=== PATIENT | female | born 1995 | race African-American/Black ===

== ENCOUNTER 2022-12-26 08:05 | Emergency (ER) | payer BC, SELFPAY ==
[2022-12-26 08:18] VITALS: BP 137/86; PULSE 115; RESP 20; TEMP 36.5; O2SAT 99
--- NOTE | 2022-12-26 08:30 | ED.ABDPAIN ---
HPI - Abdominal Pain General Chief Complaint: Abdominal Pain Stated Complaint: pain in lower right abdo History of Present Illness HPI narrative: Patient presents with right lower quadrant pain for the last 3 days. Patient states the pain is worse when she lays flat are moves and reports decreased appetite. Related Data Home Medications Medication Instructions Recorded Confirmed No Home Medications 12/26/22 12/26/22 Allergies Allergy/AdvReac Type Severity Reaction Status Date / Time No Known Allergies Allergy Verified 12/26/22 08:21 Review of Systems Review of Systems: CONSTITUTIONAL: Denies fever, chills, or sweats. EYES: Denies visual changes, redness, or discharge. ENT: Denies rhinorrhea, congestion, sore throat, or otalgia. CARDIOVASCULAR: Denies chest pain, palpitations, or edema. RESPIRATORY: Denies cough or dyspnea. GASTROINTESTINAL: Denies abdominal pain, nausea, vomiting, or diarrhea. GENITOURINARY: Denies dysuria or hematuria. SKIN: Denies rash or itching. MUSCULOSKELETAL: Denies back pain, joint pain, or myalgia. NEUROLOGIC: Denies headache, numbness, or weakness. PSYCHIATRIC: Denies anxiety or depression. PMFSH Comments At time of signature, agree with nursing past medical, surgical, social and family history. There is no relevant family history pertinent to the presenting complaint Exam Narrative: GENERAL: Well-appearing, well-nourished, and in no acute distress. HEAD: Normocephalic, atraumatic. EYES: PERRLA and EOMI. ENT: Nares clear, no rhinorrhea or epistaxis. Mucous membranes moist. NECK: Supple. CHEST: Clear to auscultation. No respiratory distress. HEART: Regular rate and rhythm. No murmur heard. Normal peripheral pulses. ABDOMEN: Soft, nondistended, normal active bowel sounds. Right lower quadrant pain, no guarding no rebound tenderness EXTREMITIES: Normal range of motion. No edema. SKIN: Warm, dry, no rash. NEURO: No focal deficits. Alert and oriented x3. Alejandra Coma Scale Eye Opening: Spontaneous 4 Alejandra Coma Scale Motor: Obeys Commands 6 Alejandra Coma Scale Verbal: Oriented 5 [place] Coma Scale Total 15 Course Course Level of Care: Express Care Visit Transfer Transfered to: [place] Transportation: Other (private vehicle) Transfer rationale: higher level of care Accepting physician: dr tilley Transfer comments: patient to go straight to [facility] room do not ear or drink Enroute MDM - Abdominal Pain Lab Data Labs: Urine Glucose Negative Reference Range: Negative Urine Bilirubin Negative Reference Range: Negative Urine Ketone Negative Reference Range: Negative Urine Specific [place] 1.005 Reference Range:1.001-1.035 Urine Blood Trace Reference Range: Negative * * Urine pH 5.5 Reference Range: 5.0-9.0 Urine Protein Negative Reference Range: Negative Urine Urobilinogen 0.2 Reference Range: 0.2-1.0 Urine Nitrate Negative Reference Range: Negative Urine Leukocyte Trace Reference Range: Negative Urine Color Yellow Reference Range: Yellow Urine Characteristics Cloudy Discharge P
== END 2022-12-26 08:35 | disposition short-term general hospital (02) ==
LOC: EXPBETH 08:11
PROVIDERS: Emergency Provider Nurse Practitioner Family
DX: R10.31 Right lower quadrant pain (principal)
CPT/HCPCS: 81003; 99212; G0463

== ENCOUNTER 2022-12-26 08:59 | Day surgery (SDC) | payer BC, SELFPAY ==
[2022-12-26] VITALS (14 sets, daily range): BP systolic 102–137; BP diastolic 65–90; PULSE 79–124; RESP 14–21; TEMP 36.6–37.1; O2SAT 99–100
--- NOTE | ~2022-12-26 | CT_ITS ---
EXAMINATION: CT abdomen pelvis w con DATE: 12/26/2022 11:15 INDICATION: Right lower quadrant abdominal pain, elevated white blood cell count. TECHNIQUE: Computed tomography (CT) of the abdomen and pelvis was performed with 100 CC Omnipaque 350 intravenous contrast. Automated exposure control and iterative reconstruction technique were employe d. Exam dose: 536.49 mGy-cm total exam DLP. COMPARISON: None. FINDINGS: There is thickening of the wall of the appendix and appendiceal dilatation, measuring over 9 mm diameter, with periappendiceal fat stranding, consistent with acute appendicitis. There is a deirdre cification of approximately 5.2 x 9.5 mm dimension in the posterior cecum near the base of the append ix. The lung bases are clear of infiltrate or consolidation. Normal heart size. No pericardial or pleural effusion. The liver, gallbladder, bile ducts, spleen, pancreas, pancreatic duct, and adrenal glands and kidneys appear normal. No urinary tract calculus or hydroureteronephrosis. The urinary bladder, uterus and adnexal areas are unremarkable. There is a small posterior cul-de-sac fluid collection which may be physiologic or secondary to appendicitis. Normal caliber of the abdominal aorta. No intraperitoneal or retroperitoneal or pelvic mass lesion or adenopathy or ascites. Included skeletal structures are unremarkable. IMPRESSION: Acute appendicitis Reviewed, dictated and finalized at [facility] Reviewed, dictated and finalized at [facility]. IMPRESSION: Acute appendicitis
[2022-12-26 09:32] LABS: Basophils Percent Auto 0.3 % (0.2-1.2); Eosinophils Absolute Auto 0.1 K/mm3 (0-0.3); Eosinophils Percent Auto 0.6 % (0-4.4); Hemoglobin 13.2 g/dL (12.0-15.0); Immature Granulocyte Absolute 0.04 K/mm3 (0.00-0.031); Immature Granulocyte Percent A 0.3 % (0-0.5); Lymphocytes Absolute Auto 2.24 K/mm3 (0.9-3.2); Lymphocytes Percent Auto 19.5 % (18.3-44.2); Mean Corpuscular HGB Conc 33.8 g/dl (32-36); Mean Corpuscular Hemoglobin 32.4 pg (26-34); Mean Corpuscular Volume 95.6 fl (80-100); Mean Platelet Volume 9.7 fl (7.4-10.4); Monocytes Absolute Auto 0.9 K/mm3 (0.1-0.6); Monocytes Percent Auto 7.5 % (2.6-8.5); Neutrophils Absolute Auto 8.3 K/mm3 (1.3-6.7); Neutrophils Percent Auto 71.8 % (45.5-73.1); Platelet Count Result 258 k/mm3 (150-375); Red Blood Count 4.08 M/mm3 (4.2-5.4); Red Cell Distribution Width 11.3 % (11.5-14.5); White Blood Count 11.5 K/mm3 (4.5-10.0)
[2022-12-26 09:43] LABS: Alanine Aminotransferase 16 U/L (6-35); Albumin Level 4.4 g/dL (3.5-5.1); Alkaline Phosphatase 103 U/L (38-126); Anion Gap 8 mmol/L (8-16); Aspartate Amino Transferase 24 U/L (14-36); Bilirubin,Total 0.7 mg/dL (0.2-1.3); Blood Urea Nitrogen 7 mg/dL (7-17); Carbon Dioxide 26 mmol/L (22-30); Chloride 101 mmol/L (98-107); Estimated CRCL calculation 84 ml/min; Estimated Glomerular Filt Rate > 60; Glucose 88 mg/dL (65-110); Lipase 63 U/L (23-300); Potassium 3.8 mmol/L (3.4-5.0); Sodium 135 mmol/L (137-145)
[2022-12-26 10:31] LABS: Appearance Urine Clear (Clear); Bilirubin Urine Negative (Negative); Blood Urine Negative (Negative); Color Urine Yellow (Yellow); Glucose Urine UA Negative (Negative); Ketones Urine 1+ mg/dL (Negative); Leukocyte Esterase Ur Negative LEU/UL (Negative); Nitrate Urine Negative (Negative); Protein Urine Negative (Negative); Specific Grav Ur 1.004 (1.001-1.035); Urobilinogen Urine 0.2 mg/dL (<2.0); pH Urine 5.5 (5.0-9.0)
--- NOTE | 2022-12-26 10:50 | ED.ABDPAIN ---
HPI - Abdominal Pain General Chief Complaint: Abdominal Pain Stated Complaint: abd pain Time Seen by Provider: 12/26/22 10:07 History of Present Illness HPI narrative: 27-year-old female, LMP 2 weeks ago, reports for evaluation of right lower quadrant abdominal pain x3 days. Patient states the abdominal pain is sharp in nature, states in the right lower quadrant and sometimes radiates up into her epigastrium. Reports the pain is worse when she lays flat and a few hours after she eats. She reports anorexia secondary to decreased appetite and fear of worsening pain. She reports nausea, denies vomiting. Last bowel movement today was normal. Denies melena or hematochezia, fever, chest pain or shortness of breath, back pain, dysuria or hematuria, vaginal discharge or concern for STDs. Patient was to urgent care prior to arrival and was advised to come to the ED for further evaluation of appendicitis. She denies history of abdominal surgeries Related Data Allergies Allergy/AdvReac Type Severity Reaction Status Date / Time No Known Allergies Allergy Verified 12/26/22 10:13 Review of Systems Review of Systems: CONSTITUTIONAL: Denies fever, chills EYES: Denies visual changes, redness, or discharge. ENT: Denies rhinorrhea, congestion, sore throat, or otalgia. CARDIOVASCULAR: Denies chest pain, palpitations, or edema. RESPIRATORY: Denies cough or dyspnea. GASTROINTESTINAL: See HPI GENITOURINARY: Denies dysuria or hematuria. SKIN: Denies rash or itching. MUSCULOSKELETAL: Denies back pain, joint pain, or myalgia. NEUROLOGIC: Denies headache, numbness, dizziness, or weakness. PSYCHIATRIC: Denies anxiety or depression. Exam Narrative: GENERAL: Well-appearing, in no acute distress. Patient resting comfortably in exam bed. She is pleasant and conversational. HEAD: Normocephalic NECK: Supple. CHEST: No respiratory distress. Clear to auscultation, no adventitious breath sounds. HEART: Regular rate and rhythm. No murmur heard. Normal peripheral pulses. ABDOMEN: Normal active bowel sounds. Abdomen soft with tenderness and guarding in the right lower quadrant, positive McBurney's point tenderness. Positive Rovsing sign. Negative Rayo sign. Negative obturator and psoas sign. No peritoneal signs. No CVA tenderness. no overlying skin changes. EXTREMITIES: Normal range of motion. No edema. SKIN: Warm, dry, no rash. NEURO: No focal deficits. Alert and oriented x3. PSYCH: Normal mood and affect. Course Vital Signs Vital signs: Vital Signs Temperature 97.9 F 12/26/22 09:13 Pulse Rate 96 12/26/22 09:13 Respiratory Rate 16 12/26/22 09:13 Blood Pressure 136/79 12/26/22 09:13 Pulse Oximetry 100 12/26/22 09:13 Oxygen Delivery Room Air 12/26/22 09:13 Temperature 98.7 F 12/26/22 14:21 Pulse Rate 88 12/26/22 16:05 Respiratory Rate 18 12/26/22 16:05 Blood Pressure 128/81 12/26/22 16:05 Pulse Oximetry 100 12/26/22 15:05 Oxygen Delivery Room Air 12/26/22 16:05 Oxygen Flow Rate 8 12/26/22 14:35 MDM - Abdominal Pain MDM Narrative Medical decision making narrative: 27-year-old female, LMP 2 weeks ago, reports for evaluation of right lower quadrant abdominal pain x3 days with associated nausea and anorexia. Vital stable, she is afebrile. Exam reveals McBurney point tenderness and positive Rovsing sign. No peritoneal signs. Labs significant for white count of 11.5. Urinalysis with 1+ ketones. Chemistries unremarkable. CT obtained showing acute appendicitis without evidence of perforation. Patient given IV fluids, started on Zosyn and received pain and nausea control. Case discussed with Dr. Lopez, general surgery, who agrees to take the patient to the OR from the ED for emergent laparoscopic appendectomy. Labs, imaging and plan discussed with the patient, she is agreeable to plan. Medical Records Attestation: I reviewed the patient's medical records. Lab Data Attestation: I revie
[2022-12-26 11:07] LABS: Add Urine Microscopic? NO
[2022-12-26] MEDS: SODIUM CHLORIDE 0.9% IV 1,000 ML 999 ML IV CONT (11:17)
[2022-12-26] MEDS: KETOROLAC 30 MG/ML VIAL (*BKC) IV PUSH (11:18)
[2022-12-26] MEDS: ONDANSETRON INJ 4 MG/2 ML VIAL IV PUSH (11:18)
--- NOTE | 2022-12-26 12:24 | WPDANESEPP ---
Anes - Eval Pre Procedure Procedure: Lap Appy Date/Time: 12/26/22 12:24 Surgeon: Dr. Padron Preop Diagnosis: Acute Appendicitis Pre Op Diagnosis: abd pain Patient Data Age: 27 Gender: F Height: 1.57 m Weight: 71.6 kg Last Vital Signs Temp 97.9 F 12/26/22 09:13 Pulse 96 12/26/22 09:13 Resp 16 12/26/22 09:13 BP 136/79 12/26/22 09:13 Pulse Ox 100 12/26/22 09:13 O2 Del Method Room Air 12/26/22 09:13 Allergies Allergy/AdvReac Type Severity Reaction Status Date / Time No Known Allergies Allergy Verified 12/26/22 10:13 Home Medications Medication Instructions Recorded Confirmed Type No Home Medications 12/26/22 12/26/22 History Laboratory Tests 12/26/22 12/26/22 09:22 10:22 WBC 11.5 H K/mm3 (4.5-10.0) RBC 4.08 L M/mm3 (4.2-5.4) Hgb 13.2 g/dL (12.0-15.0) Hct 39.0 % (37.0-47.0) MCV 95.6 fl (80-100) MCH 32.4 pg (26-34) MCHC 33.8 g/dl (32-36) RDW 11.3 L % (11.5-14.5) Plt Count 258 k/mm3 (150-375) MPV 9.7 fl (7.4-10.4) Immature Gran % (Auto) 0.3 % (0-0.5) Neut % (Auto) 71.8 % (45.5-73.1) Lymph % (Auto) 19.5 % (18.3-44.2) [place] % (Auto) 7.5 % (2.6-8.5) Eos % (Auto) 0.6 % (0-4.4) Baso % (Auto) 0.3 % (0.2-1.2) Lymph # (Auto) 2.24 K/mm3 (0.9-3.2) [place] # (Auto) 0.9 H K/mm3 (0.1-0.6) Eos # (Auto) 0.1 K/mm3 (0-0.3) Baso # (Auto) 0.0 K/mm3 (0.0-0.1) Abs Immat Gran (auto) 0.04 H K/mm3 (0.00-0.031) Absolute Neuts (auto) 8.3 H K/mm3 (1.3-6.7) Absolute Nucleated RBC 0.0 K/mm3 (0.0-0.012) Nucleated RBC % 0.0 % (0.0-0.2) Sodium 135 L mmol/L (137-145) Potassium 3.8 mmol/L (3.4-5.0) Chloride 101 mmol/L (98-107) Carbon Dioxide 26 mmol/L (22-30) Anion Gap 8 mmol/L (8-16) BUN 7 mg/dL (7-17) Creatinine 0.80 mg/dL (0.7-1.0) Estim Creat Clear Calc 84 ml/min Estimated GFR > 60 (59 - ) Glucose 88 mg/dL (65-110) Calcium 9.0 mg/dL (8.4-10.2) Total Bilirubin 0.7 mg/dL (0.2-1.3) AST 24 U/L (14-36) ALT 16 U/L (6-35) Alkaline Phosphatase 103 U/L (38-126) Total Protein 8.0 g/dL (6.3-8.2) Albumin 4.4 g/dL (3.5-5.1) Lipase 63 U/L (23-300) Urine Color Yellow (Yellow) Urine Appearance Clear (Clear) Urine pH 5.5 (5.0-9.0) Ur Specific [place] 1.004 (1.001-1.035) Urine Protein Negative mg/dL (Negative) Urine Glucose (UA) Negative mg/dL (Negative) Urine Ketones 1+ H mg/dL (Negative) Ur Blood (Man) Negative (Negative) Urine Nitrate Negative (Negative) Urine Bilirubin Negative (Negative) Urine Urobilinogen 0.2 mg/dL (<2.0) Leukocyte Esterase Rfl Negative ANDI/UL (Negative) : patient denies (neg. upreg in ER) Patient hx anesthesia problems: none Family hx anesthesia problems: none Prior surgeries: none Results Review: All pre-operative results and documents have been reviewed as part of the pre-operative evaluation. Exam Day of Procedure 12/26/22 12:24
--- NOTE | 2022-12-26 13:06 | PM.IMHP ---
H&P: HPI History of Present Illness Date/Time: 12/26/22 13:06 Chief Complaint: Acute appendicitis Narrative: Patient presents to the emergency with a 2 day history of lower abdominal pain which localized to right lower quadrant the abdomen. She has anorexia. No diarrhea or fevers. White blood cell count was elevated emergent 11,500. CT scan abdomen pelvis shows shows a appendix dilated at 9mm and some periappendiceal stranding. There is also an appendicolith at the base of the cecum which was likely in the cecum a very near the appendiceal orifice. No perforation or periappendiceal abscesses noted. Review of Systems Review of Systems: The remainder of the review of systems to include constitutional, HEENT, cardiovascular, respiratory, GI, , integumentary, musculoskeletal, endocrine, immunologic, hematologic, psychiatric, and neurologic are all negative except for which is mentioned above in the HPI. Meds Home Medications and Allergies Home Medications Medication Instructions Recorded Confirmed Type No Home Medications 12/26/22 12/26/22 History Allergies Allergy/AdvReac Type Severity Reaction Status Date / Time No Known Allergies Allergy Verified 12/26/22 10:13 Vital Signs Vital Signs - 24 hr 12/26/22 09:13 12/26/22 11:22 12/26/22 11:31 Temperature 36.6 C Pulse Rate 96 87 79 Respiratory Rate 16 18 20 Blood Pressure 136/79 122/74 108/67 Pulse Oximetry 100 100 100 Oxygen Delivery Room Air 12/26/22 12:15 Temperature Pulse Rate 80 Respiratory Rate 18 Blood Pressure 102/67 Pulse Oximetry 99 Oxygen Delivery Exam Const: General: uncomfortable (Right lower quadrant tenderness) Eyes: General: appearance normal, both eyes and all related structures Sclera: sclerae normal Pupils: Equal, round and reactive pupils present Neck: Neck: supple and no JVD Resp: Effort & Inspection: normal respiratory effort Auscultation: clear to auscultation bilaterally and diminished lung sounds Cardio: Rate: regular rate Rhythm: regular rhythm GI: Other: Soft nondistended. Localized voluntary guarding right lower quadrant with moderate tenderness but no generalized rebound. No masses appreciated no ventral hernias are noted. Skin: General skin exam: normal color and no rashes or lesions noted Neuro: General: gait normal Speech: normal speech Motor exam (neuro): 5/5 motor strength present throughout and Motor abnormalites present Sensory Exam: normal sensation Extrem: General: normal to inspection Psych: Mental Status: mental status grossly normal Affect: normal affect H&P: Results Labs Labs: Short CBC 12/26/22 Range/Units 09:22 WBC 11.5 H (4.5-10.0) K/mm3 Hgb 13.2 (12.0-15.0) g/dL Hct 39.0 (37.0-47.0) % Plt Count 258 (150-375) k/mm3 BMP 12/26/22 09:22 Sodium 135 L Potassium 3.8 Chloride 101 Carbon Dioxide 26 BUN 7 Creatinine 0.80 Glucose 88 Calcium 9.0 Liver Function 12/26/22 Range/Units 09:22 Total Bilirubin 0.7 (0.2-1.3) mg/dL AST 24 (14-36) U/L ALT 16 (6-35) U/L Alkaline Phosphatase 103 (38-126) U/L Albumin 4.4 (3.5-5.1) g/dL Urine 12/26/22 Range/Units 10:22 Urine Color Yellow (Yellow) Urine Appearance Clear (Clear) Urine pH 5.5 (5.0-9.0) Ur Specific [place] 1.004 (1.001-1.035) Urine Protein Negative (Negative) mg/dL Urine Glucose (UA) Negative (Negative) mg/dL Imaging CT scan - abdomen: Radiologist's impression: [place] [address] [place] [address] CT Scan Report Signed Patient: Hola Del Toro : 1995 MR#: [id number] Age/Sex: 27 / F Acct:[id number] Loc: [facility]? ? ADM Date: 12/26/22Attending Dr: Ordering Physician: Ayah Barnes PA-C Date of Service: 12/26/22 Procedure(s): CT abdomen pelvis w con Accession Number(s): [id number] cc: MED SPECIALIST PHYSICIAN; Cameron
[2022-12-26] MEDS: PIPERACILLN/TAZ 3.375GM/NS50ML 3.375 GM/50 ML BAG IVPB (13:10)
[2022-12-26] MEDS: LACTATED RINGERS 1,000 ML 30 ML IV CONT ×2 (13:17→14:41)
--- NOTE | 2022-12-26 13:42 | P.PNAN_ITS ---
Anes - Eval Final PreProcedure Day of Procedure 12/26/22 13:42 Patient weight: overweight (bmi 28.9) Heart: regular rate and rhythm Airway: Mallampati scale class 1 Neurological: alert and oriented Last oral intake: 6 hours ASA classification: II Emergent: yes Anesthetic plan: proceed Anesthesia type and monitoring: general Results Review: All pre-operative results and documents have been reviewed as part of the pre- operative evaluation. Informed Consent: The patient's anesthetic plan and its attendant risks and benefits were discussed with the patient/family/POA. Questions were solicited and answers provided to the satisfaction of the patient/family/POA.
[2022-12-26] MEDS: LIDO 1%/EPINEPHRINE 1:100,000 20 ML VIAL 30 ML INFILTRATE (13:54)
[2022-12-26] MEDS: BUPivacaine HCL 0.5% PF 30 ML VIAL INFILTRATE (13:54)
--- NOTE | 2022-12-26 14:21 | P.OP_ITS ---
Procedure Note - Detailed Date of Procedure 12/26/22 Pre-op Diagnosis Acute appendicitis. Post-op Diagnosis Same Procedure Performed Laparoscopic appendectomy. Surgeon Gagandeep Padron MD [employer] COURTNEY Veloz Anesthesia General Indications Patient is a 37-year-old female who presented to the emergency with 2 day history of right lower quadrant abdominal pain. Workup in the emergency room showed likely acute appendicitis with a CT scan which showed a dilated appendix up to 9mm and periappendiceal inflammation. [place] [address] and her exam was consistent with acute appendicitis. She presents now for emergent laparoscopic appendectomy. Findings Acutely inflamed appendix without perforation or gangrene or periappendiceal abscess. Base the appendix was normal appearing. Description of Procedure After informed consent was obtained patient was brought to the operating room where she was placed supine position and general endotracheal anesthesia was administered. Romero catheter was placed decompress the bladder and was then prepped and draped in usual sterile fashion. A time-out was then performed correctly identifying the patient as well as the procedure to be performed and verified she was given perioperative IV antibiotics. I then proceeded to enter the abdomen left upper quadrant utilizing a 5mm Optiview port. Once inside the abdomen insufflated to adequate pneumoperitoneum 15mmHg of CO2. There were no adhesions in the mid abdomen or pelvis. I could see the appendix in the right lower quadrant the abdomen. I then placed a 12mm periumbilical trocar port as well as 2 more 5mm trocar ports of the super umbilical region and the right lower quadrant the abdomen all under direct visualization. Working through these trocar ports I then elevated the appendix with a laparoscopic grasper and identified the base. The appendix appeared to be inflamed throughout its whole length there is no evidence of perforation or gangrene. No periappendiceal abscess was noted. I then made a defect through the mesoappendix just at the base with a laparoscopic dissected. A 45mm Endo-SHERIE stapler was then used to divide the appendix flush with the cecum. A vascular reload to the laparoscopic stapler was then used to divide the mesoappendix. The appendix was then placed in Endo-Catch bag and brought out through the periumbilical trocar port site. Speculative sent to pathology for examination. I then checked both staple lines and they were both hemostatic. I then removed all the trocar ports under visualization allowed the abdomen decompressed. I then irrigated out the port sites sterile saline solution hemostasis was good. I then closed the 12mm periumbilical trocar port fascial defect utilizing an 0 Vicryl suture placed in a figure-eight fashion. The skin edges in all the port sites were then approximated Katrin running subcuticular 4-0 Monocryl suture. The incisions were then cleaned and skin glue sterile dressings were applied. The patient tolerated the procedure well no complications. All sponges, needles, and instrument counts were correct at the end procedure. EBL was _ 10 __cc. The patient was awakened and taken to recovery in stable and satisfactory condition. Implants None Estimated Blood Loss 10 Drains No Packing No Pathology Yes (Appendix to pathology) Complications No immediate complications Condition Stable Disposition PACU [facility] Billing Surgery - Charge Forward: Surgery Billing
[2022-12-26] MEDS: oxyCODONE HCL (*CRX) 5 MG TAB IR PO (15:36)
== END 2022-12-26 16:16 | disposition home or self-care (01) ==
LOC: ANHED 10:07 → ANHSURGERY 12:13
PROVIDERS: Emergency Medicine; Surgery; Emergency Provider Physician Assistant; Visit Provider Surgery
PROC: 0DTJ4ZZ Resection of Appendix, Percutaneous Endoscopic Approach (ICD-10-PCS; CPT 44970; principal; 2022-12-26 13:00)
DX: K35.80 Unspecified acute appendicitis (principal)
CPT/HCPCS: 44970; 36415; 74177; 80053; 81003; 81025; 83690; 85025; 88304; 96374; 96375; 99285; A9270; J1885; J2250; J2405; J2543; J2704; J3010; J7030; J7120; Q9967

== ENCOUNTER 2023-03-04 13:34 | Emergency (ER) | payer BC, SELFPAY ==
[2023-03-04 13:38] VITALS: BP 141/83; PULSE 110; RESP 16; TEMP 36.6; O2SAT 99
--- NOTE | 2023-03-04 13:56 | ED.DENTAL ---
HPI - Dental/Oral General Chief complaint: Dental/Oral Stated complaint: Toothache Source: patient and RN notes reviewed History of Present Illness HPI Narrative: 27 yo F presents to urgent care with complaints of left lower dental pain that started yesterday afternoon and left facial swelling that started last night. Pt reports a hx of dental abscesses in this spot before. Denies any fevers, chills, chest pain, SOB, vomiting, or trouble swallowing. Pt has been taking ibuprofen at home. Related Data Allergies Allergy/AdvReac Type Severity Reaction Status Date / Time No Known Allergies Allergy Verified 03/04/23 13:43 Review of Systems Review of Systems: CONSTITUTIONAL: Denies fever, chills, or sweats. EYES: Denies visual changes, redness, or discharge. ENT: Denies otalgia and sore throat. Left lower facial swelling and dental pain CARDIOVASCULAR: Denies chest pain, palpitations, or edema. RESPIRATORY: Denies cough or dyspnea. GASTROINTESTINAL: Denies abdominal pain, nausea, vomiting, or diarrhea. GENITOURINARY: Denies dysuria or hematuria. SKIN: Denies rash or itching. MUSCULOSKELETAL: Denies back pain, joint pain, or myalgia. NEUROLOGIC: Denies headache, numbness, or weakness. Pertinent positives per HPI. [facility] Surgical History Surgical History History of laparoscopic appendectomy 12/26/22 Social History Social History Smoking status: Never smoker Alcohol intake: current Substance use: never Comments At the time of my signature, I reviewed and agree with the nursing past medical, surgical, social, and family history. There is no relevant family history pertinent to the patient complaint. Exam Narrative: GENERAL: This is a well-nourished, well-developed patient, in no apparent distress. HEAD: normocephalic, atraumatic. EYES: Sclera clear/white. Vision is grossly intact. EARS: External ears normal, auditory canals clear and without drainage, TMs normal without perforation. Hearing grossly intact. NOSE: External nose normal with no obvious nasal discharge, nares without redness, no rhinorrhea. MOUTH: swelling to left mandible, gum swelling noted around tooth #19. THROAT: Mucous membranes moist, posterior pharynx clear. NECK: Neck supple, non-tender without lymphadenopathy, masses or thyromegaly. CARDIOVASCULAR: Regular rate RESPIRATORY: No respiratory distress SKIN: warm, intact with no suspicious lesions or rash, good texture and turgor. NEURO: awake, alert, and oriented to person, place and time. There were no obvious focal neurologic abnormalities. Course Course Level of Care: Express Care Visit Vital Signs Vital signs: Vital Signs Temperature 98 F 03/04/23 13:38 Pulse Rate 110 H 03/04/23 13:38 Respiratory Rate 16 03/04/23 13:38 Blood Pressure 141/83 H 03/04/23 13:38 Pulse Oximetry 99 03/04/23 13:38 Oxygen Delivery Room Air 03/04/23 13:38 Temperature 98 F 03/04/23 13:38 Pulse Rate 110 H 03/04/23 13:38 Respiratory Rate 16 03/04/23 13:38 Blood Pressure 141/83 H 03/04/23 13:38 Pulse Oximetry 99 03/04/23 13:38 Oxygen Delivery Room Air 03/04/23 13:38 reviewed MDM - Dental/Oral MDM Narrative Medical decision making narrative: Take antibiotic until it's gone. Brushing teeth at least twice daily with gentle flossing. Avoid temperature extremes when you eat. Salt gargle to rinse your mouth after every meal You may apply ice to the face to reduce pain/swelling. For pain, you may take: Tylenol 650-1000mg by mouth every 4-6 hours. Do not exceed 4000mg in 24 hours. Advil, Motrin, Aleve (Ibuprofen) 800 mg by mouth every 8 hours. Do not exceed 2400mg in 24 hours. Also, recommend regular dental check up one-two times a year to prevent tooth decay and other periodontal disease. Follow-up with the dentist as soon as possible. See t
== END 2023-03-04 14:03 | disposition home or self-care (01) ==
PROVIDERS: Emergency Provider Nurse Practitioner Family
DX: K04.7 Periapical abscess without sinus (principal)
CPT/HCPCS: 99213; G0463